=== PATIENT | male | born 1965 | race Two or more races ===

== ENCOUNTER 2020-03-14 07:58 | Emergency (ER) | payer SELFPAY ==
[~2020-03-14] VITALS: Ht 167.6 cm; Wt 83.2 kg
[~2020-03-14 07:58] MED LIST: DILT360C32 PO; HYDR-4353 PO; INDO-12 PO; LOSA25TA96 PO; MORP30TA60 PO; OMEP10SU2 PO
--- NOTE | 2020-03-14 08:52 | NUR ---
PT UP AMBULATING TO BR.
[2020-03-14 09:01] LABS: D-DIMER 1.97 MG/L FEU (0-0.50)
--- NOTE | 2020-03-14 09:28 | NUR ---
VASCULAR AT BEDSIDE
[2020-03-14 11:03] VITALS: BP 132/67
== END 2020-03-14 11:04 | disposition home or self-care (01) ==
LOC: ER 07:58
DX: M71.22 Synovial cyst of popliteal space [Baker], left knee (principal); R59.0 Localized enlarged lymph nodes; I10 Essential (primary) hypertension; K21.9 Gastro-esophageal reflux disease without esophagitis; Z98.890 Other specified postprocedural states; Z88.2 Allergy status to sulfonamides; Z88.8 Allergy status to other drugs, medicaments and biological substances; Z79.899 Other long term (current) drug therapy
CPT/HCPCS: 29505; 36415; 85379; 93971; 99284

== ENCOUNTER 2022-02-12 10:19 | Emergency (ER) | payer MEDICAID | END 2022-02-12 17:05 | disposition left against medical advice (07) | LOC: ER 10:20 | DX: S91.319A Laceration without foreign body, unspecified foot, initial encounter (principal); Z53.21 Procedure and treatment not carried out due to patient leaving prior to being seen by health care provider; X58.XXXA Exposure to other specified factors, initial encounter; Y93.89 Activity, other specified; Y92.488 Other paved roadways as the place of occurrence of the external cause; Y99.8 Other external cause status ==